=== PATIENT | female | born 2005 | race Two or more races ===

== ENCOUNTER 2024-03-10 17:30 | Emergency (ER) | payer BC, SELFPAY ==
--- NOTE | ~2024-03-10 | XR_ITS ---
EXAMINATION: XR CHEST CLINICAL INFORMATION: Chest wall pain. COMPARISON: None available. TECHNIQUE: Frontal view of the chest was obtained. 1849 hours FINDINGS: No significant abnormality is noted involving the heart, lungs, mediastinum, bony thorax or soft tissues. XR/XR chest 1V IMPRESSION: Unremarkable examination.
--- NOTE | 2024-03-10 17:47 | ECG_ITS ---
Test Reason : SOB/CHEST PAIN Blood Pressure : / mmHG Vent. Rate : 078 BPM Atrial Rate : 078 BPM P-R Int : 140 ms QRS Dur : 076 ms QT Int : 372 ms P-R-T Axes : 066 072 064 degrees QTc Int : 424 ms Normal sinus rhythm Possible Left atrial enlargement Borderline ECG No previous ECGs available Referred By: Berna Hernandez Electronically Signed By:Rolando Perez
[2024-03-10 18:41] VITALS: BP 124/92; PULSE 97; RESP 16; TEMP 36.6; O2SAT 100; BMI 21.3
--- NOTE | 2024-03-10 18:44 | ED.CHESTPAIN ---
HPI - Chest Pain General Chief Complaint: Chest Pain Stated Complaint: sob chest pain Time Seen by Provider: 03/10/24 19:17 Source: patient Mode of arrival: ambulatory Limitations: no limitations History of Present Illness HPI narrative: 18-year-old female with no significant past medical history who presents to the emergency department, with a friend, for complaints of right-sided chest wall pain for the past 2 weeks. She reports the pain feels similar to cramping and believes that she feels a ?lump? to the right of her sternum. She denies any shortness of, recent illness, fever, chills, cough Pertinent positives and negatives discussed in the HPI Related Data Allergies Allergy/AdvReac Type Severity Reaction Status Date / Time No Known Drug Allergies Allergy Unknown Verified 03/10/24 18:45 Review of Systems Review of Systems: Yes all other systems are reviewed and are negative [facility] Social History Social History Advance Directives: No Advance Directives Information Provided: No Physical Exam Vital Signs: Vital Signs: Last Vital Signs Temp 97.4 F 03/10/24 19:27 Pulse 71 03/10/24 19:27 Resp 14 03/10/24 19:27 BP 125/87 03/10/24 19:27 Pulse Ox 100 03/10/24 19:27 O2 Del Method Room Air 03/10/24 19:27 BMI result Body Mass Index 21.3 Nursing notes and vital signs reviewed. GENERAL APPEARANCE: A&0 x 4, generally well appearing, no acute distress HENMT: Normal to inspection, atraumatic, face symmetrical. Normal external ears, nose, and oropharynx clear. EYE: PERRLA, EOM intact, structures appear normal NECK: Supple without stiffness or restricted ROM. HEART: Normal rate and regular rhythm, normal S1/S2, no M/R/G LUNGS: LS CTA, moving air well. Able to speak in complete sentences. No crackles, wheezes, or rhonchi auscultated CHEST: no signs of trauma, erythema, or ecchymosis BACK: No CVAT, no obvious deformity EXTREMITIES: Moving all extremities without difficulty. Normal capillary refill. NEUROLOGICAL: Alert and oriented, moving all 4 extremities with equal strength. CN not formally tested but appearing grossly intact. Observed to ambulate with normal gait. Cognition normal SKIN: Warm and dry without any lesions, rash, or visible sores Medical Decision Making Medical Decision Making MDM Narrative: Old records reviewed for previous imaging, lab studies, ECGs, and notes. Patient was assessed the emergency department with no acute distress or toxicity noted. Chest x-ray showing no signs of acute findings, per my interpretation. EKG completed which I have independently interpreted as normal sinus rhythm with no signs of acute ischemia or ectopy. Patient educated to use [id number] medications in addition to rest and ice for management of comfort and follow up with the primary care provider. Patient is safe for discharge at this time with plan for [id number] Tylenol and/or NSAID such as ibuprofen or naproxen for fever/discomfort with dosing as per packaging. HPI, PE, diagnostics, and plan discussed with patient and family with no unanswered questions at this time. Strict return precautions given to return to the emergency department with new, worsening, or concerning emergent symptoms. Recommended to follow-up with there primary care provider in 24-48 hours for further treatment and management. Differential Diagnosis Differential Diagnoses: The differential diagnosis associated with the presentation includes But not limited to ACS, PE, CVA, fracture, dislocation, pneumonia, pneumothorax, abscess, sepsis, malignancy Discharge Plan Discharge Clinical Impression: Acute chest wall pain Patient Disposition: Home, Self-Care Instructions: Thoracic Pain (ED), Chest Wall Pain (ED) Additional Instructions: Your seen in the emergency department for concerns of chest wall pain. Your EKG showed no evidence of cardiac abnormalities and your chest x-ray showed no fractured or dislocated ribs, enlarged heart, pneumonia, or other lung issues. You are safe for discharge at this time with plan for management of fever or discomfort with [id number] Tylenol and/or NSAID such as ibuprofen or naproxen with dosing as per packaging. Please return to the emergency department with new, worsening, or concerning emergent symptoms. Recommended to follow-up with your primary care provider in 24-48 hours for further treatment and management. Thank you for choosing [facility]. Stand Alone Forms: Work/School Release Interventions: ED Discharge Assessment Last Done: 03/10/24 19:27 Discharge Date/Time: 03/10/24 19:50 Print Language: Czech
[2024-03-10 19:27] VITALS: BP 125/87; PULSE 71; RESP 14; TEMP 36.3; O2SAT 100
== END 2024-03-10 19:50 | disposition home or self-care (01) ==
PROVIDERS: Emergency Provider Student in an Organized Health Care Education/Training Program
DX: R07.89 Other chest pain (principal); R06.02 Shortness of breath
CPT/HCPCS: 71045; 93005; 99283

== ENCOUNTER → 2024-03-10 17:47 | Outpatient (BNV) | payer BC, SELFPAY | PROVIDERS: Emergency Provider Student in an Organized Health Care Education/Training Program; Visit Provider Internal Medicine Cardiovascular Disease | DX: R06.02 Shortness of breath (principal); R07.9 Chest pain, unspecified | CPT/HCPCS: 93010 ==